=== PATIENT | male | born 1965 | race Caucasian/White ===

== ENCOUNTER 2023-11-21 12:28 | Emergency (ER) | payer BC, OTHER, SELFPAY ==
[2023-11-21 12:41] VITALS: BP 149/84; PULSE 93; RESP 18; TEMP 36.7; O2SAT 100
--- NOTE | 2023-11-21 12:57 | ED.GENADULT ---
HPI - General Adult General Chief complaint: Upper Respiratory Infection Stated complaint: Sinus Congestion/Cough Source: patient Mode of arrival: ambulatory Limitations: no limitations History of Present Illness HPI narrative: Patient presents for evaluation of sinus symptoms for last 5 days. Symptoms include sinus congestion, thick yellow drainage from the nares, and upper dental pain. He also reports an occasional cough. No fever, chills, nausea, vomiting, shortness of breath. No recent sick contacts to his knowledge. He tried dayquil for his symptoms. Related Data Home Medications Medication Instructions Recorded Confirmed atorvastatin 20 mg tablet 20 mg PO DAILY 04/20/23 11/21/23 dapagliflozin propanediol 10 mg 10 mg PO DAILY 04/20/23 11/21/23 tablet (Farxiga) losartan 100 mg tablet 100 mg PO DAILY 04/20/23 11/21/23 Allergies Allergy/AdvReac Type Severity Reaction Status Date / Time No Known Allergies Allergy Verified 06/27/23 13:11 Review of Systems Review of Systems: CONSTITUTIONAL: Denies fever, chills, or sweats. EYES: Denies visual changes, redness, or discharge. ENT: Reports sinus congestion, yellow nasal discharge, and upper dental pain CARDIOVASCULAR: Denies chest pain, palpitations, or edema. RESPIRATORY: Reports cough. Denies dyspnea. GASTROINTESTINAL: Denies abdominal pain, nausea, vomiting, or diarrhea. GENITOURINARY: Denies dysuria or hematuria. SKIN: Denies rash or itching. MUSCULOSKELETAL: Denies back pain, joint pain, or myalgia. NEUROLOGIC: Denies headache, numbness, dizziness, or weakness. PSYCHIATRIC: Denies anxiety or depression. [facility] Past Medical History Medical History Diabetes Hyperlipidemia Hypertension Surgical History Surgical History No pertinent past surgical history Family History Family History Father Diabetes mellitus Hypertension Grandparent Diabetes mellitus Social History Social History Smoking status: Never smoker Alcohol intake: current Alcohol use details: socially Substance use: never Substance use type: does not use Lack of Transportation: No Lack of Food: Never True Current Housing: I Have Housing Concerned About Future Housing: No Difficulty Paying Gas/Electric Bills: No Difficulty Paying for Meds: No Currently Unemployed: No Education: Trade/Vocational Certificate Difficulty w/ Childcare or Family Care: No Exam Narrative: GENERAL: Well-appearing, well-nourished, and in no acute distress. HEAD: Normocephalic, atraumatic. EYES: PERRLA and EOMI. ENT: Nares clear, no rhinorrhea or epistaxis. Mucous membranes moist. Oropharynx without tonsillar hypertrophy exudate or other lesions. There is frontal and bilateral maxillary sinus tenderness. There is thick yellow discharge in the nares. Bilateral TMs pearly mcdonnell nonbulging NECK: Supple. No adenopathy or masses. No carotid bruits or JVD CHEST: Clear to auscultation. No respiratory distress. No wheezes rales or rhonchi HEART: Regular rate and rhythm. No murmur heard. Normal peripheral pulses. ABDOMEN: Soft, nontender, nondistended, normal active bowel sounds. EXTREMITIES: Normal range of motion. No edema. SKIN: Warm, dry, no rash. NEURO: No focal deficits. Alert and oriented x3. PSYCH: Normal mood and affect. Course Course Emergency Course: This is a 58-year-old male who presented for evaluation of sinus symptoms. He meets criteria for ABRS based upon quality of nasal discharge. Will dc with augmentin. Increase hydration. OTC agents for symptom management. Follow up with primary provider. Go to the ER for worsening symptoms. Pt in agreement with plan of care. Level of Care: Express Care Visit Vital Signs
== END 2023-11-21 13:00 | disposition home or self-care (01) ==
PROVIDERS: Emergency Provider Nurse Practitioner; PCP Family Medicine
DX: J01.90 Acute sinusitis, unspecified (principal); E11.9 Type 2 diabetes mellitus without complications; E78.5 Hyperlipidemia, unspecified; I10 Essential (primary) hypertension; Z79.899 Other long term (current) drug therapy
CPT/HCPCS: 99213; G0463

== ENCOUNTER 2024-07-13 07:54 | Outpatient (CLI) | payer OTHER, SELFPAY ==
[2024-07-13 08:48] LABS: Creatinine Urine 75.2 mg/dL
[2024-07-13 08:53] LABS: Microalbumin Urine Random 33.1 mg/L (0-16.7)
[2024-07-13 08:57] LABS: Hemoglobin A1C 8.5 % (<5.7)
[2024-07-13 09:02] LABS: Prostate Specific Antigen 1.2 ng/mL (< OR = 4.0)
[2024-07-19 12:14] LABS: Testosterone Free 96.7 pg/mL (35.0-155.0); Testosterone Total 527 ng/dL (250-1100)
== END 2024-07-13 07:55 | disposition home or self-care (01) ==
PROVIDERS: PCP Family Medicine; Visit Provider Family Medicine
DX: R79.89 Other specified abnormal findings of blood chemistry (principal); E11.9 Type 2 diabetes mellitus without complications; G47.33 Obstructive sleep apnea (adult) (pediatric)
CPT/HCPCS: 36415; 82043; 83036; 84153; 84402; 84403; G0103

== ENCOUNTER 2025-06-20 09:50 | Emergency (ER) | payer OTHER, SELFPAY ==
[2025-06-20 09:53] VITALS: BP 182/93; PULSE 83; RESP 16; TEMP 36.5; O2SAT 100
[2025-06-20] MEDS: TETANUS,DIPHTHERIA,AC PERTUSSIS ADULT (0.5 ML) BOOSTRIX IM (10:27)
--- OUTSIDE RECORDS SUMMARY | 2025-06-20 10:28 | XMS_ITS | Encounter Summary ---
Author Organization [facility] Address [address] [place] [address] Phone Care Team Providers Care Manager Exchange Name Role Phone Sudhakar Howard MD Primary Care Provider [phone] Terrence Benoit MD Primary Care Provider [phone] Encounter Details Date Type Department Care Team (Late st Contact Info) Description 12/23/2017 Orders Only [facility] ProviderChaz MD [address] [place] [id number] Social History Tobacco Use Types Packs/Day Years Used Date Smoking Tobacco: Never Alcohol Use Standard Drinks/Week Comments Yes 0 (1 standard drink = 0.6 oz pur e alcohol) Sex and Gender Information Value Date Recorded Sex Assigned at Not on file 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 08/29/2020 08/31/2020 12/27/2020 3:05 AM C DT documented as of this encounter Care Teams Manager Exchange Relationship Specialty Start Date End Date Sudhakar Howard MD PCP - General 01/06/17 05/02/22 Terrence Benoit MD PCP - General Family Medicine 05/03/22 documented as of this encounter
--- OUTSIDE RECORDS SUMMARY | 2025-06-20 10:28 | XMS_ITS | Clinical Summary ---
Author Organization [facility] Address [address] [place] [id number] Care Team Providers Care Oral Surgery Physician Name Role Phone Terrence Benoit MD Primary Care Provider [phone] Allergies No known active allergies Medications tadalafil (CIALIS) 20 mg tablet take 1 tablet by oral route once a day prn Ed 6 11 017 Active metFORMIN XR (GLUCOPHAGE XR) 500 mg 24 hr tablet Take 2 tablets (1,000 mg total) by mouth 2 (two) times a day 360 tablet 3 022 Active insulin degludec (TRESIBA) 200 unit/mL (3 mL) pen for injection Inject 0.2 mL (40 Units total) under the skin daily before dinner 18 mL 1 022 Active Additional Information Patient taking differently: 50 Unitssubcutaneous Daily before dinner, Reported on 08/04/2022 sertraline (ZOLOFT) 100 mg tablet Take 1 tablet (100 mg total) by mouth daily 90 tablet 1 023 Active SITagliptin phosphate (JANUVIA) 100 mg tabletIndications :type 2 diabetes mellitus Take 1 tablet (100 mg total) by mouth daily 90 tablet 023 Active blood-glucose sensor (Dexcom G6 Sensor) device USE TO MONITOR BLOOD GLUCOSE LEVELS, CHANGE SENSOR EVERY 10 DAYS 9 each 3 023 Active blood-glucose meter,continuous (Dexcom G6 Splitter Machine) misc Use to monitor blood glucose levels DX E11.69, E78.5 1 each 023 Active blood-glucose transmitter (Dexcom G6 Transmitter) device USE TO MONITOR BLOOD GLUCOSE LEVELS, CHANGE TRANSMITTER EVERY 90 DAYS 1 each 3 023 Active amLODIPine (NORVASC) 5 mg tablet Take 1 tablet (5 mg total) by mouth daily 90 tablet 023 Active atorvastatin (LIPITOR) 20 mg tablet TAKE 1 TABLET DAILY 90 tablet 3 024 Active losartan-hydrochl orothiazide (HYZAAR) 100-25 mg per tabletIndications :Essential hypertension TAKE 1 TABLET DAILY 90 tablet 3 024 Active dapagliflozin propanediol (Farxiga) 10 mg tabletIndications :Type 2 diabetes mellitus with hyperlipidemia (HCC) TAKE 1 TABLET DAILY 90 tablet 3 024 Active Active Problems Problem Noted Date Diagnosed Date Class 2 obesity with body ma ss index (BMI) of 35.0 to 35.9 in adult 11/08/2022 Assessment & Plan (11/08/2022 7:30 AM ASSISTANT PASTRY CHEF): Wt Readings from Last 3 Encounters: 11/08/22 110.9 kg (244 lb 8 oz) 08/04/22 108.5 kg (239 lb 3.2 oz) 05/04/22 104.6 kg (230 lb 9.6 oz) BMI Readings from Last 3 Encounters: 11/08/22 35.08 kg/m 08/04/22 34.32 kg/m 05/04/22 33.09 kg/m Not at goal of bmi <30 Continue diet and exercise BMI Follow-up includes: nutrition counseling and exercise counseling. Morbid (severe) obesity due to excess calories 0 11/08/2022 Assessment & Plan (11/08/2022 7:43 AM ASSISTANT PASTRY CHEF): BMI Follow-up includes: nutrition counseling, exercise counseling and education provided. Recurrent major depression 11/08/2022 Assessment & Plan (11/08/2022 7:43 AM ASSISTANT PASTRY CHEF): Stable - cotninue sertraline 100 mg every day Patient reiterated no suicidal thoughts at this time; take medication as directed; contact 911 and go to the ER if becomes suicidal; discussed side effects of medication with patient; encouraged healthy diet and exericise; encouraged patient to see a counselor Physical exam, annual 11/08/2022 Assessment & Plan (11/08/2022 7:49 AM ASSISTANT PASTRY CHEF): Discussed lifestyle modifications, diet and exercise. Routine blood work ordered/reviewed today. Yearly vision and dental examinations. Mixed hyperlipidemia 08/04/2022 Assessment & Plan (11/08/2022 7:33 AM ASSISTANT PASTRY CHEF): Lab Results Component Value Date CHOL 184 08/03/2022 CHOL 178 11/20/2020 CHOL 202 (H) 05/26/2020 Lab Results Component Value Date HDL 45 08/03/2022 HDL 44 11/20/2020 HDL 46 05/26/2020 Lab Results Component Value Date LDLCALC 59 (L) 05/09/2018 LDLCALC 49 (L) 12/23/2017 LDLCALC 41 (L) 06/24/2017 LDL 91 08/03/2022 LDL 88 11/20/2020 LDL 113 (H) 05/26/2020 LDLDIRECT 83 05/09/2018 LDLDIRECT 74 12/23/2017 LDLDIRECT 89 06/24/2017 SCRLDL 60 07/11/2019 Lab Results Component Value Date TRIG 359 (H) 08/03/2022 TRIG 348 (H) 11/20/2020 TRIG 319 (H) 05/26/2020 No results found for: POCCHDLR No results found for: POCNONHDL No results found for: POCCHLPL Elevated triglycerides but otherwise ldl at goal of less < 100 Continue lipitor 20 mg every day The 10-year ASCVD risk score (Victor Hugo GROSS, et al., 2019) is: 19.6% Values used to calculate the score: Age: 56 years Sex: Male Is Non- : No Diabetic: Yes Tobacco smoker: No Systolic Blood Pressure: 154 mmHg Is BP treated: Yes HDL Cholesterol: 45 mg/dL Total Cholesterol: 184 mg/dL Assessment & Plan (08/04/2022 8:01 AM CDT): Lab Results Component Value Date CHOL 184 08/03/2022 CHOL 178 11/20/2020 CHOL 202 (H) 05/26/2020 Lab Results Component Value Date HDL 45 08/03/2022 HDL 44 11/20/2020 HDL 46 05/26/2020 Lab Results Component Value Date LDLCALC 59 (L) 05/09/2018 LDLCALC 49 (L) 12/23/2017 LDLCALC 41 (L) 06/24/2017 LDL 91 08/03/2022 LDL 88 11/20/2020 LDL 113 (H) 05/26/2020 LDLDIRECT 83 05/09/2018 LDLDIRECT 74 12/23/2017 LDLDIRECT 89 06/24/2017 SCRLDL 60 07/11/2019 Lab Results Component Value Date TRIG 359 (H) 08/03/2022 TRIG 348 (H) 11/20/2020 TRIG 319 (H) 05/26/2020 No results found for: POCCHDLR No results found for: POCNONHDL No results found for: POCCHLPL Trigs still significantly elevated, otherwise LDL and HDL are at goal The 10-year ASCVD risk score (Victor Hugo GROSS, et al., 2019) is: 14.9% Values used to calculate the score: Age: 56 years Sex: Male Is Non- : No Diabetic: Yes Tobacco smoker: No Systolic Blood Pressure: 130 mmHg Is BP treated: Yes HDL Cholesterol: 45 mg/dL Total Cholesterol: 184 mg/dL Continue statin Screen for colon cancer 11/26/2020 Overview (11/26/2020): Added automatically from request for surgery [id number] History of colon polyps 11/26/2020 Overview (11/26/2020): Added automatically from request for surgery [id number] Tubular adenoma 11/26/2020 Overview (11/26/2020): Added automatically from request for surgery [id number] Essential hypertension 01/09/2018 Assessment & Plan (11/08/2022 7:31 AM ASSISTANT PASTRY CHEF): BP Readings from Last 3 Encounters: 11/08/22 154/94 08/04/22 130/80 05/04/22 153/90 Vitals BP 154/94 (BP Location: Right arm, Patient Position: Sitting) Pulse 78 Temp 36.8 C (98.2 F) (Oral) Resp 16 Ht 177.8 cm (5' 10) Wt 110.9 kg (244 lb 8 oz) BMI 35.08 kg/m Lab Results Component Value Date POTASSIUM 4.2 08/03/2022 Not at goal - continue losartan 100-25 hctz. Will start norvasc 5 mg every day Assessment & Plan (08/04/2022 7:43 AM CDT): BP Readings from Last 3 Encounters: 08/04/22 130/80 05/04/22 153/90 02/23/21 128/81 bp at goal today. Continue current regimen Assessment & Plan (05/04/2022 8:26 AM CDT): bp not at goal right now, generally at goal on current regimen - will continue withotu changes and have him follow up in about 3 months Assessment & Plan (12/06/2019 4:17 PM ASSISTANT PASTRY CHEF): Pt was advised of continuing heart healthy DASH diet, current antihypertensives, increase exercise as tolerated. Risk of HTN were reviewed. Type 2 diabetes mellitus with hyperlipidemia 12/2017 Assessment & Plan (11/08/2022 7:48 AM ASSISTANT PASTRY CHEF): Lab Results Component Value Date HGBA1C 9.4 08/04/2022 HGBA1C 10.2 05/04/2022 HGBA1C 7.6 (H) 05/26/2020 Lab Results Component Value Date MICROALBUR 1.0 08/03/2022 LDLCALC 59 (L) 05/09/2018 CREATININE 0.97 08/03/2022 notat goal of a1c <7 Did not take the rybelsus - due to side effects. States that he was sick to his stomach. \will stasrt januvia - pt cannot tolerate glp1 type medications, already on an sglt2 and long acting insulin Continue metofmrin 1000 mg bid Continue farxiga 10 mg every day Start januvia 100 mg every day, rtc in 3 months or sooner if side effects Assessment & Plan (08/04/2022 7:54 AM CDT): Lab Results Component Value Date HGBA1C 10.2 05/04/2022 HGBA1C 7.6 (H) 05/26/2020 HGBA1C 7.3 (H) 07/29/2019 Lab Results Component Value Date MICROALBUR 0.5 11/20/2020 LDLCALC 59 (L) 05/09/2018 CREATININE 0.97 08/03/2022 Has his dexcom in place - states that he doesn't check it often enough as he shuold States that sugars have been running 150 to about 200 Or so May need to further increase his medication to achieve better glucose control Not at goal today and miniumal improvement in a1c - will start rybelsus. Start 3mg for 30 days then increase to 7 mg Assessment & Plan (05/04/2022 8:23 AM CDT): Not at goal at this time, new a1c is 10 due to patient being without medication for some time. Will refill now, have him come back in 3 months for repeat a1c and see how things are doing. Assessment & Plan (12/06/2019 4:21 PM ASSISTANT PASTRY CHEF): Stable w/o notable elevations given sx. Hemoglobin A1c at 7.3%. Cnt. Monitoring as advised by reason orders, Cnt. Prior prescribed diabetic regimen, consistent carb diet and follow-up in office with repeat labs scheduled. Gastroesophageal reflux disease 02/22/2014 Overview (01/12/2017): ESOPHAGEAL REFLUX Irritable bowel syndrome 02/22/2014 Overview (01/13/2017): IRRITABLE BOWEL SYNDROME Decreased testosterone level 08/05/2006 Overview (01/12/2017): Low testosterone Resolved Problems Problem Noted Date Diagnosed Date Resolved Date Acute bronchitis 12/06/2019 12/06/2019 Assessment & Plan (12/06/2019 4:22 PM ASSISTANT PASTRY CHEF): Secondary bronchitis from suspected pneumonia. Recommending Ceftin b.i.d. for 10 days, Flonase, Mucinex, increase fluids and use of albuterol for bronchospasms, cough, wheezing in attempt to avoid use of corticosteroids. Pt was advised S/Es of medications, indication to F/U in clinic within the next week with persistent or worsening in sx. Type 2 diabetes mellitus 02/22/201412/2017 Overview (01/11/2017): DMII WO CMP NT ST UNCNTR Benign hypertension 02/22/2014 01/10/20 18 Overview (01/12/2017): BENIGN HYPERTENSION Diabetes mellitus 08/05/2006 01/09/2018 Overview (01/12/2017): Diabetes mellitus Encounters Date Type Department Care Team Description 06/05/2025 11:22 AM CDT - 06/05/2025 11:59 PM CDT Hospital Encounter [facility] [address] [place] [address] Encounter for disability determination Discharge Disposition: Discharge to home or self care from Last 3 Months Immunizations Immunization Administration Dates Next Due Influenza, Quadrivalent, Spl it, Preservative Free, Intramuscular 07/22/2022,11/25/2020,08/08/2019,06/28 Influenza, Trivalent, IM (MDV) 07/09/2012,2010 Influenza, Unspecified 12/07/2021(Deferr ed: Patient Refused),08/20/2018 Pfizer SARS-CoV-2 Monovalent Vaccination (12+ Yrs) PURPLE 01/17/2021,12/22/2020 Pneumococcal Conjugate PCV 13 06/28/2017 Pneumococcal Polysaccharide PPV23 09/07/2011 Tdap 11/27/2014 Surgical History Surgery Date Site/Laterality Comments APPENDECTOMY Appendectomy OTHER SURGICAL HISTORY sleep apnea: cpap ELBOW SURGERY COLONOSCOPY 08/14/2015 Medical History Medical History Date Comments Hx Other Medical 2006 Diabetes mellit us, type 2 Hx Other Medical 2006 low testosteron e Sleep apnea 2006 sleep apnea Hx Other Medical 01/18/2013 Rt elbow surger y Hyperlipidemia Hyperlipidemia; Comments: JDR 03/24/2016 - Hypertension Hypertension DM type 2 with diabetic dysl ipidemia (HCC) Family History Medical History Relation Name Comments Diabetes Brother 1 Diabetes mellit us; Heart disease Brother 2 Heart disease; Hypertension Brother 3 Hypertension; Coronary artery disease Father Teodoro nary artery disease; Diabetes Father Diabetes mellit us; Heart disease Father Heart disease; Hypertension Father Hypertension; Diabetes Mother Diabetes mellit us; Other Mother Alive and well; Relation Name Status Comments Brother 1 Brother 2 Brother 3 Father Mother Alive Social History Tobacco Use Types Packs/Day Years Used Date Smoking Tobacco: Never Smokeless Tobacco: Never Tobacco Cessation:Counseling Given: Not Answered Alcohol Use Standard Drinks/Week Comments Yes 0 (1 standard drink = 0.6 oz pur e alcohol) PHQ-2 Answer Date Recorded PHQ-2 Total Score (If total score is 3 or more points, staff should administer the PHQ-9) 0 11/08/2022 Sex and Gender Information Value Date Recorded Sex Assigned at Not on file Legal Sex Male 9:58 AM ASSISTANT PASTRY CHEF Gender Identity Not on file Sexual Orientation Not on file Obstetrics History Last Filed Vital Signs Vital Sign Reading Time Taken Comments Blood Pressure 154/94 11/08/2022 7:14 AM ASSISTANT PASTRY CHEF Pulse 78 11/08/2022 7:14 AM ASSISTANT PASTRY CHEF Temperature 36.8 C (98.2 F) 11/08/2022 7:14 AM ASSISTANT PASTRY CHEF Respiratory Rate 16 11/08/2022 7:14 AM ASSISTANT PASTRY CHEF Oxygen Saturation 97% 08/04/2022 7:34 AM CDT Inhaled Oxygen Concentration - - Weight 110.9 kg (244 lb 8 oz) 11/08/2022 7:14 AM ASSISTANT PASTRY CHEF Height 177.8 cm (5' 10) 11/08/2022 7:14 AM ASSISTANT PASTRY CHEF Body Mass Index 35.08 11/08/2022 7:14 AM ASSISTANT PASTRY CHEF Plan of Treatment Health Maintenance Due Date Last Done Comments Hepatitis B Screening 1982 Zoster Vaccine (1 of 2) 2014 Dilated Eye Exam 06/20/2017 06/20/2016 Foot Exam 11/25/2021 11/25/2020, 05/10, 12/06/2019, Additional history exists Pneumococcal vaccine <65 (3 of 3 - PCV20 or PCV21) 06/28/2022 06/28/2017, 09/07/2011 Hemoglobin A1C 05/08/2023 11/08/2022, 07/10, 05/04/2022, Additional history exists Albumin Creatinine Ratio, Urine 08/03/2023 08/03/2022, 11/20/2020, 07/29/2019 Lipid Panel 08/03/2023 08/03/2022, 11/09, 05/26/2020, Additional history exists Prostate Cancer Screening-PSA 08/03/2023, 11/20/2020, 07/29/2019, Additional history exists eGFR 08/03/2023 08/03/2022, 11/09, 05/26/2020, Additional history exists Depression Screening 11/08/2023 11/08/2022, 08/04/2022, 02/09/2021, Additional history exists Regular Well Visit/Exam 18-64 11/08/2023, 11/25/2020, 08/08/2019, Additional history exists DTaP/Tdap/Td Vaccine (2 - Td or Tdap) 11/27/2024 11/27/2014 Covid-19 Vaccine (2024-11 6 season) 2025 07/22/2022, 09/01/2021, 01/17/2021, Additional history exists Influenza Vaccine (#1) 2025 , 11/25/2020, 08/08/2019, Additional history exists Colon Cancer Screening-Colonoscopy 02/23/2026 02/23/2021, 08/14/2015, 08/14/2015, Additional history exists Hepatitis C Screening Completed 12/23/2017 Colon Cancer Screening-CT Colonography Discontinued 02/23/2021, 08/14/2015, 08/14/2015, Additional history exists Colon Cancer Screening-DNA Stool Discontinued 02/23/2021, 08/14/2015, 08/14/2015, Additional history exists Colon Cancer Screening-FIT Discontinued 02/23, 08/14/2015, 08/14/2015, Additional history exists Colon Cancer Screening-Sigmoidoscopy Discontinued 02/23/2021, 08/14/2015, 08/14/2015, Additional history exists Procedures Procedure Name Priority Date/Time Associated Diagnosis Comments XR SPINE LUMBAR 2 OR 3 VIEWS Schedule Routine, Read Routine (OP Routine) 06/05/2025 11:42 AM CDT Encounter for disability determination POCT HEMOGLOBIN A1C Routine 11/08/2022 7 :35 AM ASSISTANT PASTRY CHEF Type 2 diabetes mellitus with hyperlipidemia (HCC) COMPREHENSIVE METABOLIC PANEL Routine 08/03/2022 6:15 AM CDT Type 2 diabetes mellitus with hyperlipidemia (HCC) LIPID PANEL Routine 08/03/2022 6:15 AM CDT Type 2 diabetes mellitus with hyperlipidemia (HCC) ALBUMIN CREATININE RATIO, URINE Routine 08/03/2022 6:15 AM CDT Type 2 diabetes mellitus with hyperlipidemia (HCC) PSA SCREEN Routine 08/03/2022 6:15 AM CDT Preventative health care COLONOSCOPY 02/23/2021 9:37 AM CDT HEPATITIS C AB REFLEX RNA QUANT PCR Routine 12/23/2017 7:53 AM CDT DIABETES FOOT EXAM Routine 09/30/2016 DIABETES EYE EXAM Routine 06/20/2016 from Last 3 Months or Most Recently Relevant to Health Maintenance Results * XR Spine Lumbar 2 or 3 Views (06/05/2025 11:42 AM CDT) Anatomical Region Laterality Modality Spine N/A Computed Radiogr aphy 06/16/2025 11:3 1 PM CDT Narrative 06/16/2025 11:34 PM CDT EXAM DESCRIPTION: XR SPINE LUMBAR 2 OR 3 VIEWS REASON FOR STUDY: disability determinations Chronic lower back pain that is sharp when moving Received 10-15 shots of cortisone in back per pt TECHNIQUE: 2 radiographic view(s) of the lumbar spine. COMPARISON: None FINDINGS: Dextroscoliosis of the lumbar spine. There is moderate to severe degenerative changes along the scoliotic concavity, worse at L4-L5. There is severe facet arthropathy at L4-L5 and L5-S1. Mild retrolisthesis of L2 on L3 and L3 on L4. The vertebral body heights are normal without compression fracture. Age-indeterminate T12 vertebral body compression fracture. Cgox-pi-bxwpydql degenerative changes of the lower thoracic spine. Hvqo-qu-yzcqvyqw multilevel degenerative intervertebral disc height loss of the lumbar spine, worse at L3-L4, L4-L5 and L5-S1. IMPRESSION: 1. Age-indeterminate T12 vertebral body compression fracture. Follow-up MRI may prove helpful to determine chronicity if clinically indicated. 2. Moderate to severe degenerative changes of the lumbar spine as described above. Follow-up MRI may prove helpful for further evaluation if clinically desired. THIS IS AN ELECTRONICALLY VERIFIED FINAL REPORT 06/16/2025 11:34 PM - Electronically signed by Bk Posey M.D. BB: RENAE Report ID: [id number] Reading Location: [id number] Procedure Note Bk Posey MD PhD - 06/16/2025 EXAM DESCRIPTION: XR SPINE LUMBAR 2 OR 3 VIEWS REASON FOR STUDY: disability determinations Chronic lower back pain that is sharp when moving Received 10-15 shotsof cortisone in back per pt TECHNIQUE: 2 radiographic view(s) of the lumbar spine. COMPARISON: None FINDINGS: Dextroscoliosis of the lumbar spine. There is moderate to severedegenerative changes along the scoliotic concavity, worse at L4-L5. There is severefacet arthropathy at L4-L5 and L5-S1. Mild retrolisthesis of L2 on L3 and L3 onL4. The vertebral body heights are normal without compression fracture. Age-indeterminate T12 vertebral body compression fracture.Zdcu-hw-yzbmuctx degenerative changes of the lower thoracic spine. Nrvd-no-gizylkiecomxbrlyjk degenerative intervertebral disc height loss of the lumbar spine, worse at L3-L4, L4-L5 and L5-S1. IMPRESSION: 1. Age-indeterminate T12 vertebral body compression fracture. Follow-upMRI may prove helpful to determine chronicity if clinically indicated. 2. Moderate to severe degenerative changes of the lumbar spine asdescribed above. Follow-up MRI may prove helpful for further evaluation ifclinically desired. THIS IS AN ELECTRONICALLY VERIFIED FINAL REPORT 06/16/2025 11:34 PM - Electronically signed by Bk Posey M.D. BB: RENAE Report ID: [id number] Reading Location: [id number] Pedro Luis Villa MD IMG XR PROCEDURES Final Result * (ABNORMAL) POCT hemoglobin A1c (11/08/2022 7:35 AM ASSISTANT PASTRY CHEF) Hemoglobin A1C, POC 9.9 % 00092/FINE NEEDLE ASPIRATE 11/08/2022 7:35 AM ASSISTANT PASTRY CHEF us Terrence Benoit MD POINT OF CARE TEST ORDERABLES Fi nal Result * PSA screen (08/03/2022 6:15 AM CDT) PSA 0.41 < OR = 4.00 ng/mL [facility] Comment: The total PSA value from this assay system is standardized against the WHO standard. The test result will be approximately 20% lower when compared to the equimolar-standardized total PSA (Melissa Sarita). Comparison of serial PSA results should be interpreted with this fact in mind. This test was performed using the Siemens chemiluminescent method. Values obtained from different assay methods cannot be used interchangeably. PSA levels, regardless of value, should not be interpreted as absolute evidence of the presence or absence of disease. Blood specimen (specimen) 08/03/2022 6:15 AM CDT 08/03/2022 6:15 AM CDT Narrative [facility] - 08/04/2022 11:05 AM CDT FASTING:YES FASTING: YES us Terrence Benoit MD LAB BLOOD ORDERABLES Final Resul t [facility] [address] [facility] [address] * Albumin Creatinine Ratio, Urine (08/03/2022 6:15 AM CDT) Creatinine, ur 91 20 - 320 mg/dL [facility] Microalbumin, ur 1.0 See Note: mg/dL [facility] Comment: Reference Range: Reference Range Not established Microalbumin/creat ratio 11 <30 mcg/mg creat [facility] Comment: The ADA defines abnormalities in albumin excretion as follows: Albuminuria Category Result (mcg/mg creatinine) Normal to Mildly increased <30 Moderately increased 30-299 Severely increased > OR = 300 The ADA recommends that at least two of three specimens collected within a 3-6 month period be abnormal before considering a patient to be within a diagnostic category. Urine 08/03/2022 6:15 AM CDT 08/03/2022 6:15 AM CDT Narrative [facility] - 08/04/2022 11:05 AM CDT FASTING:YES FASTING: YES us Terrence Benoit MD LAB URINE ORDERABLES Final Resul t [facility] [address] [facility] [place] [phone] * (ABNORMAL) Lipid panel (08/03/2022 6:15 AM CDT) Cholesterol 184 <200 mg/dL [facility] HDL 45 > OR = 40 mg/dL [facility] Triglycerides 359(H) <150 mg/dL [facility] Comment: If a non-fasting specimen was collected, consider repeat triglyceride testing on a fasting specimen if clinically indicated. Sarmad et al. J. of Clin. Lipidol. 2015;9:129-169. LDL 91 mg/dL (calc) [facility] Comment: Reference range: <100 Desirable range <100 mg/dL for primary prevention; <70 mg/dL for patients with CHD or diabetic patients with > or = 2 CHD risk factors. LDL-C is now calculated using the Dave-Hao calculation, which is a validated novel method providing better accuracy than the Friedewald equation in the estimation of LDL-C. Dave RAZA et al. МАРИНА. 2013;310(19): 3846-0910 (http://education.[employer].Teach.com/faq/PLJ677) Chol/HDL ratio 4.1 <5.0 (calc) [facility] Non-HDL, (LDL+VLDL) 139(H) <130 mg/dL (calc) [facility] Comment: For patients with diabetes plus 1 major ASCVD risk factor, treating to a non-HDL-C goal of <100 mg/dL (LDL-C of <70 mg/dL) is considered a therapeutic option. Blood specimen (specimen) 08/03/2022 6:15 AM CDT 08/03/2022 6:15 AM CDT Narrative [facility] - 08/04/2022 11:05 AM CDT FASTING:YES FASTING: YES us Terrence Benoit MD LAB BLOOD ORDERABLES Final Resul t [facility] [address] [place] [phone] * (ABNORMAL) Comprehensive metabolic panel (08/03/2022 6:15 AM CDT) Glucose 197(H) 65 - 99 mg/dL [facility] Comment: Fasting reference interval For someone without known diabetes, a glucose value >125 mg/dL indicates that they may have diabetes and this should be confirmed with a follow-up test. BUN 11 7 - 25 mg/dL [facility] Creatinine 0.97 0.70 - 1.30 mg/dL [facility] eGFR 91 > OR = 60 mL/min/1. 73m2 [facility] Comment: The eGFR is based on the CKD-EPI 2020 equation. To calculate the new eGFR from a previous Creatinine or Cystatin C result, go to https://www.kidney.org/professionals/ kdoqi/gfr%5Fcalculator BUN/creat ratio NOT APPLICABLE 6 - 22 (calc) [facility] Sodium 139 135 - 146 mmol/L [facility] Potassium, pl 4.2 3.5 - 5.3 mmol/L [facility] Chloride 97(L) 98 - 110 mmol/L [facility] CO2 29 20 - 32 mmol/L [facility] Calcium 9.7 8.6 - 10.3 mg/dL [facility] Protein, sr 7.1 6.1 - 8.1 g/dL [facility] Albumin 4.6 3.6 - 5.1 g/dL [facility] GLOBULIN 2.5 1.9 - 3.7 g/dL (calc) [facility] Alb/glob ratio 1.8 1.0 - 2.5 (calc) [facility] Bilirubin, total 0.6 0.2 - 1.2 mg/dL [facility] Alk phos 126 35 - 144 U/L [facility] AST 42(H) 10 - 35 U/L [facility] ALT (SGPT) 48(H) 9 - 46 U/L [facility] Blood specimen (specimen) 08/03/2022 6:15 AM CDT 08/03/2022 6:15 AM CDT Narrative [facility] - 08/04/2022 11:05 AM CDT FASTING:YES FASTING: YES us Terrence Benoit MD LAB BLOOD ORDERABLES Final Resul t [facility] [address] [place] [phone] * COLONOSCOPY (02/23/2021 9:37 AM CDT) Anatomical Region Laterality Modality Other Narrative Procedure Note Kelly Chilel MD - 02/23/2021 9:37 AM CDT [facility] Patient Name: Itz Escobedo Procedure Date: 02/23/2021 9:37 AM Date of : 1965 Admit Type: Outpatient Age: 55 Gender: Male Attending MD: Kelly Chilel M.D. Room: [facility] ENDOSCOPY ROOM 1 Note Status: Finalized Patient Profile: This is a 55 year old male. No family history ofcolon cancer. History of adenoma polyp in 2014 Procedure: Colonoscopy Indications: Surveillance: Personal history of adenomatouspolyps on last colonoscopy 5 years ago, Last colonoscopy: August 2015 Referring MD: Sudhakar Howard M.D. Providers: Kelly Chilel M.D. Impression: - The entire examined colon is normal overall. - Diverticulosis in the sigmoid colon. - Internal hemorrhoids. - No specimens collected. Recommendation: - Repeat colonoscopy in 5 years for screeningpurposes. - Continue present medications. Medicines: Monitored Anesthesia Care Complications: No immediate complications. Estimated Blood Loss: Estimated blood loss: none. Procedure: Pre-Anesthesia Assessment: - Prior to the procedure, a History and Physicalwas performed, and patient medications and allergieswere reviewed. The patient's tolerance of previous anesthesia was also reviewed. The risks andbenefits of the procedure and the sedation options and risks were discussed with the patient. All questions were answered, and informed consent was obtained. Prior Anticoagulants: The patient has taken no previous anticoagulant or antiplatelet agents. ASA Grade Assessment: II - A patient with mild systemicdisease. After reviewing the risks and benefits, the patient was deemed in satisfactory condition to undergo the procedure. The benefits, risks and alternatives of theprocedure and sedation were discussed and informed consentwas obtained. All questions were answered. Please referto the signed informed consent document in the medical record. The bowel preparation used was Miralax via split dose instruction. The bowel preparation usedwas bisacodyl tablets via split dose instruction. Bowel prep was administered using a split dose. The scope was passed under direct vision. The Pediatric Colonoscope PCF-H190L [id number] was introducedthrough the anus and advanced to the the cecum, identifiedby appendiceal orifice and ileocecal valve. Thequality of the bowel preparation was good. Findings: The perianal and digital rectal examinations were normal. The cecum appeared normal. The colon (entire examined portion) appeared normal overall. Nopolyps and no mass lesions noted. One arteriovenous malformations noted inthe proximal descending colon with no stigmata of bleeding. This is abenign lesion and no intervention is needed A few small-mouthed diverticula were found in the sigmoid colon. Internal hemorrhoids were found during retroflexion. The hemorrhoids were small. Electronically signed by Kelly Chilel M.D. Kelly Chilel M.D. 02/23/2021 11:12:34 AM Number of Addenda: 0 Note Initiated On: 02/23/2021 9:37 AM Procedure Code(s): --- Professional --- 39281, Colonoscopy, flexible; diagnostic, including collection of specimen(s) by brushing or washing, when performed (separateprocedure) Diagnosis Code(s): --- Professional --- Z86.010, Personal history of colonic polyps K64.8, Other hemorrhoids K57.30, Diverticulosis of large intestine without perforation orabscess without bleeding CPT copyright 2019 [employer]. All rights reserved. The codes documented in this report are preliminary and upon childcare provider reviewmay be revised to meet current compliance requirements. Recognized by the [employer] for promoting quality in endoscopy Kelly Chilel MD ENDOSCOPY PROCEDURES Final Result * Hepatitis C Antibody Reflex Hepatitis C RNA Quantitative PCR (12/23/2017 7:53 AM CDT) Hep C Ab Negative Negative [place] Blood specimen (specimen) 12/23/2017 7:53 AM CDT 12/23/2017 12:42 PM CDT Narrative [place] - 12/23/2017 1:32 PM CDT Sudhakar Howard MD LAB MICROBIOLOGY - GENERAL [place] [address] [address] Department [place] [address] * DIABETES FOOT EXAM (09/30/2016) Diabetic Foot Exam Unknown Historical Provider HEALTH MAINTENANCE Final Result * DIABETES EYE EXAM (06/20/2016) Diabetic Eye Exam Unknown us Historical Provider MD HEALTH MAINTENANCE Final Result from Last 3 Months or Most Recently Relevant to Health Maintenance [facility] Address: [address] [place] [address] [employer]PO [facility] Address: [address] [facility] [employer] OF DISABILITY Advance Directives For more information, please contact: [phone] * Full Code (Latest Code Status on File) Date Activated Date Inactivated Comments 02/23/2021 9:55 AM 02/23/2021 4:09 PM Care Teams Oral Surgery Physician Relationship Specialty Start Date End Date Terrence Benoit MD PCP - General Family Medicine 05/03/22
--- OUTSIDE RECORDS SUMMARY | 2025-06-20 10:28 | XMS_ITS | Clinical Summary ---
Author Organization [facility] Address [address] [facility] Attn: Epic Prelude ADT DAVE LEBRON [address] Care Team Providers Care Brim Edge Trimmer Name Role Phone Unavailable Primary Care Provider Unavailabl e Encounters Date Type Department Care Team Description 04/01/2025 External Device Data [facility] ABSTRACTION Provider, Abstract from Last 3 Months Social History Tobacco Use Types Packs/Day Years Used Date Smoking Tobacco: Never Assessed Sex and Gender Information Value Date Recorded Sex Assigned at Not on file Legal Sex Male 3:27 PM CDT Gender Identity Not on file Sexual Orientation Not on file Plan of Treatment Health Maintenance Due Date Last Done Comments DTAP/TDAP/TD VACCINES (1 - Tdap) 1983 COLORECTAL SCREENING 2009 Colorectal Cancer Screening 2009 FIT-DNA Q 3 years 2009 FIT/FOBT Q 1 year 2009 Flex Sig/CT Colonography Q 5 years 2009 ZOSTER VACCINE (1 of 2) 2014 INFLUENZA VACCINE (#1) 2025 RSV VACCINE (60+ or ) (1 - 1-dose 75+ series) 2039 HEPATITIS B VACCINES Aged Out No long er eligible based on patient's age to complete this topic Insurance [employer]
--- NOTE | 2025-06-20 10:31 | ED.LOWEXIN ---
HPI - Extremity Injury (Lower) General Chief Complaint: Extremity Injury, Lower Stated Complaint: left leg injury Time Seen by Provider: 06/20/25 10:32 Source: patient Mode of arrival: ambulatory Limitations: no limitations History of Present Illness HPI Narrative: 59 y/o male with DM presented with c/o left branch wound x4 weeks. Says he scraped the leg on the plastic stairs when he slipped getting out of the pool. Since then he has kept the site clean, used neosporin and bandaids. Yesterday he removed the bandaid but it pulled the scab off the leg and now has some drainage to the wounds. Endorses swelling to leg, ccasional sharp pains in the lower leg. Denies n/v/d/f/c. Related Data Home Medications ?Medication ?Instructions ?Recorded ?Confirmed ?Last Taken ?Type dapagliflozin propanediol 10 mg 10 mg PO DAILY 04/20/23 11/21/23 Unknown History tablet (Farxiga) certrazine 06/20/25 Unknown History insulin degludec 200 unit/mL (3 unit subcut 06/20/25 Unknown History mL) subcutaneous pen (Tresiba FlexTouch U-200 insulin) losartan 06/20/25 Unknown History Allergies Allergy/AdvReac Type Severity Reaction Status Date / Time No Known Allergies Allergy Verified 06/20/25 10:11 Review of Systems Review of Systems: CONSTITUTIONAL: Denies body aches, fever, chills, or sweats. EYES: Denies visual changes, redness, or discharge. ENT: Denies rhinorrhea, congestion CARDIOVASCULAR: Denies chest pain, palpitations, or edema. RESPIRATORY: Denies cough or dyspnea. GASTROINTESTINAL: Denies abdominal pain, nausea, vomiting, or diarrhea. SKIN: left branch wound MUSCULOSKELETAL: Denies back pain, joint pain, or myalgia. NEUROLOGIC: Denies headache, numbness, tingling, or weakness. [facility] Past Medical History Medical History Hyperlipidemia Diabetes Hypertension Surgical History Surgical History No pertinent past surgical history Family History Family History Father Diabetes mellitus Hypertension Grandparent Diabetes mellitus Social History Social History Smoking status: Never smoker Alcohol intake: current Alcohol use details: socially Substance use: never Substance use type: does not use Lack of Transportation: No Lack of Food: Never True Current Housing: I Have Housing Concerned About Future Housing: No Difficulty Paying Gas/Electric Bills: No Difficulty Paying for Meds: No Currently Unemployed: No Education: Trade/Vocational Certificate Difficulty w/ Childcare or Family Care: No Comments At time of signature, I have reviewed and agree with nursing past medical, surgical, social and family history unless otherwise noted. Please see nursing chart for further information. There is no relevant family history pertinent to the presenting complaint Exam Narrative: GENERAL: Well-appearing HEAD: Normocephalic, atraumatic. EYES: conjunctivae clear, and EOMI. ENT: Mucous membranes moist. Oropharynx without edema, erythema or lesions. NECK: Supple. No lymphadenopathy CHEST: Clear to auscultation. HEART: Regular rate and rhythm. SKIN: Warm, dry. Left branch with area of localized erythema 23v22hr, center with open wounds 4x1cm and 2x1 cm, draining serous fluid. LLE with 1+ pitting edema. NEURO: Alert and oriented x3. Course Course Emergency Course: Patient is aware of diagnosis, understands and agrees to treatment plan. Anticipatory guidance given. Patient agrees to follow-up as directed and is aware of reasons to seek care at the emergency department. Portions of this record may have been created with voice recognition software Level of Care: Express Care Visit Vital Signs Vital signs: Vital Signs Temperature 97.7 F 06/20/25 09:53 Pulse Rate 83 06/20/25 09:53 Respiratory Rate 16 06/20/25 09:53 Blood Pressure 182/93 H 06/20/25 09:53 Pulse Oximetry 100 06/20/25 09:53 Oxygen Delivery Room Air 06/20/25 09:53 Temperature 97.7 F 06/20/25 09:53 Pulse Rate 83 06/20/25 09:53 Respiratory Rate 16 06/20/25 09:53 Blood Pressure 182/93 H 06/20/25 09:53 Pulse Oximetry 100 06/20/25 09:53 Oxygen Delivery Room Air 06/20/25 09:53 Reviewed MDM - Extremity Injury (Lower) MDM Narrative Medical decision making narrative: Discussed physical exam findings and wound care plan. Wound was cleansed, NATTY and bandage applied. Rx doxy. Advised supportive measures and signs/symptoms to go to the ER. Pt is appropriate for outpt treatment and f/u. Differential Diagnosis Differential diagnosis: Likely other (cellulitis, abrasion, avulsion, abscess) Discharge Plan Discharge Clinical Impression: Non-healing wound of left lower extremity Patient Disposition: Home Condition: Stable Instructions: Antibiotic Form, Wound Infection (ED) Additional Instructions: Keep the area clean and dry - cleanse with warm water and mild soap and allow to fully dry. Apply ointment as directed Take antibiotic as directed Tyelnol as needed for pain Try to elevate the leg to reduce swelling Watch for worsening symptoms including pain, redness, swelling, streaking, pus/drainage, fever. Go to the ER with any of these symptoms or concerns. Follow up with primary care provider in 5 days. Call to schedule an appointment Patient Language: Romanian Prescriptions: New doxycycline hyclate 100 mg tablet 100 mg PO BID 7 Days Qty: 14 0RF No Action insulin degludec [Tresiba FlexTouch U-200] 200 unit/mL (3 mL) insulin pen SUBCUT losartan certrazine (DME) syringe with needle, safety [Easy Touch FlipLock Syringe] 3 mL 22 gauge x 1 syringe See Rx Instructions .Route Qty: 15 3RF Rx Instructions: As directed Farxiga 10 mg tablet 10 mg PO DAILY tadalafil [Cialis] 10 mg tablet 10 mg PO DAILY PRN (Reason: sexual activity) Qty: 20 1RF Rx Instructions: administer approximately 30min before sexual activity; do not use more than 1 dose per 24hrs (DME) syringe with needle 3 mL 23 x 1 syringe See Rx Instructions .Route Qty: 50 1RF Rx Instructions: As directed (DME) Dexcom G6 Sensor Device See Rx Instructions .Route Qty: 3 3RF Rx Instructions: Check glucose continuously As directed (DME) Dexcom G6 Transmitter Device See Rx Instructions .Route Qty: 1 3RF Rx Instructions: As directed (DME) Dexcom G7 Sensor Device See Rx Instructions .Route Qty: 2 5RF Rx Instructions: As directed sertraline 100 mg tablet See Rx Instructions .ROUTE .COMPLEX Qty: 90 1RF Dose Instruction: TAKE 1 TABLET DAILY Rx Instructions: TAKE 1 TABLET DAILY metformin 500 mg tablet See Rx Instructions .ROUTE .COMPLEX Qty: 360 0RF Dose Instruction: TAKE 2 TABLETS ORALLY TWICE A DAY Rx Instructions: TAKE 2 TABLETS ORALLY TWICE A DAY Follow-up/Referrals: Cameron Rodriguez MD [Primary Care Provider, Family Practice] Time of Disposition: 10:42
== END 2025-06-20 10:55 | disposition home or self-care (01) ==
PROVIDERS: Emergency Provider Nurse Practitioner Family; PCP Family Medicine
DX: S81.802A Unspecified open wound, left lower leg, initial encounter (principal); W22.8XXA Striking against or struck by other objects, initial encounter; Z23 Encounter for immunization; I10 Essential (primary) hypertension; E11.9 Type 2 diabetes mellitus without complications; Z79.4 Long term (current) use of insulin; E78.5 Hyperlipidemia, unspecified
CPT/HCPCS: 90471; 90715; 99213; G0463

== ENCOUNTER 2025-09-03 00:52 | Day surgery (SDC) | payer OTHER, SELFPAY ==
[2025-09-01 12:38] VITALS: BMI 32.2
--- OUTSIDE RECORDS SUMMARY | 2025-09-03 00:56 | XMS_ITS | Clinical Summary ---
Author Organization [facility] Address [address] [facility] Attn: Epic Prelude ADT DAVE LEBRON [address] Care Team Providers Care Molding Process Technician Name Role Phone Unavailable Primary Care Provider Unavailabl e Encounters Date Type Department Care Team Description 08/06/2025 External Device Data [facility] ABSTRACTION Provider, Abstract 08/05/2025 External Device Data [facility] ABSTRACTION Provider, Abstract [...]
--- OUTSIDE RECORDS SUMMARY | 2025-09-03 00:56 | XMS_ITS | Encounter Summary ---
Author Organization [facility] Address [address] [place] [address] Phone Care Team Providers Care Fruit And Vegetable Inspector Name Role Phone Sudhakar Howard MD Primary Care Provider [phone] Terrence Benoit MD Primary Care Provider [phone] Encounter Details Date Type Department Care Team (Late st Contact Info) Description 12/23/2017 Orders Only [facility] ProviderChaz MD [address] [place] [id number] Social History Tobacco Use Types Packs/Day Years Used Date Smoking Tobacco: Never Alcohol Use Standard Drinks/Week Comments Yes 0 (1 standard drink = 0.6 oz pur e alcohol) Sex and Gender Information Value Date Recorded Sex Assigned at Not on file Legal Sex Male 9:58 AM CATEGORY PLANNER Gender Identity Not on file Sexual Orientation [...] COVID: Suspected 08/15/2020 08/15/2020 08/16/2020 4:33 PM CATEGORY PLANNER COVID19 08/15/2020 08/15/2020 08/29/2020 3:07 AM CATEGORY PLANNER COVID: Recovered Comment:Added based on recent COVID infection. 08/29/2020 08/31/2020 12/27/2020 3:05 AM C DT documented as of this encounter Care Teams Fruit And Vegetable Inspector Relationship Specialty Start Date End Date Sudhakar Howard MD PCP - General 01/06/17 05/02/22 Terrence Benoit MD PCP - General Family Medicine 05/03/22 documented as of this encounter
[2025-09-03] MEDS: LACTATED RINGERS 1,000 ML 150 ML IV CONT (11:02)
[2025-09-03] MEDS: ONDANSETRON INJ 4 MG/2 ML VIAL IV PUSH (11:02)
[2025-09-03] MEDS: INSULIN HUMAN REGULAR (*BKC) 100 UNITS/ML SUB-Q (11:04)
--- NOTE | 2025-09-03 11:51 | WPDANESEPPF ---
Anes - Initial Pre Proc Eval Procedure: Operation Date: 09/03/25 12:30 Proposed Procedures p Esophagogastroduodenoscopy EGD - Adam Thomson MD Date/Time: 09/03/25 11:51 Surgeon: Adam Thomson MD Pre Op Diagnosis: Epigastric pain, Nausea Patient Data Age: 59 Gender: M Height: 1.78 m Weight: 102 kg Allergies Allergy/AdvReac Type Severity Reaction Status Date / Time No Known Allergies Allergy Verified 09/03/25 10:52 Home Medications ?Medication ?Instructions ?Recorded ?Confirmed ?Type syringe with needle, safety 3 mL #15 ea 02/26/24 08/25/25 Rx 22 gauge x 1 (Easy Touch FlipLock Syringe) syringe with needle 3 mL 23 x 1 #50 ea 02/29/24 08/25/25 Rx tadalafil 10 mg tablet (Cialis) 10 mg PO DAILY PRN sexual activity 07/10/24 09/01/25 Rx #20 tabs sertraline 100 mg tablet See Rx Instructions .Route 05/13/25 09/03/25 Rx .COMPLEX #90 tabs certrazine 100 mg .Route DAILY 06/20/25 09/03/25 History insulin degludec 200 unit/mL (3 40 unit subcut DAILY 06/20/25 09/03/25 History mL) subcutaneous pen (Tresiba FlexTouch U-200 insulin) losartan 125 mg PO DAILY 06/20/25 09/03/25 History Dexcom G7 Sensor (blood-glucose #2 ea 07/17/25 08/25/25 Rx sensor) atorvastatin 20 mg tablet (Lipitor) 20 mg PO DAILY #90 tabs 07/17/25 09/03/25 Rx pen needle, diabetic 31 gauge x #100 ea 07/17/25 08/25/25 Rx 5/16 (Unifine Pentips Plus) empagliflozin 10 mg tablet 10 mg PO QAM #90 tabs 07/18/25 09/03/25 Rx (Jardiance) metformin 500 mg tablet See Rx Instructions .Route 08/25/25 09/03/25 Rx .COMPLEX #360 tabs omeprazole 40 mg capsule,delayed 40 mg PO DAILY 1 month #30 caps 08/25/25 09/03/25 Rx release Patient hx anesthesia problems: none Family hx anesthesia problems: none Results Review: All pre-operative results and documents have been reviewed as part of the pre-operative evaluation. [facility] Past Medical History Medical History Dysphagia Hyperlipidemia Diabetes Hypertension Surgical History Surgical History No pertinent past surgical history Family History Family History Father Diabetes mellitus Hypertension Grandparent Diabetes mellitus Social History Social History Smoking status: Never smoker Alcohol intake: current Alcohol use details: socially Substance use: never Substance use type: does not use Lack of Transportation: No Lack of Food: Never True Current Housing: I Have Housing Concerned About Future Housing: No Difficulty Paying Gas/Electric Bills: No Difficulty Paying for Meds: No Currently Unemployed: No Education: Trade/Vocational Certificate Difficulty w/ Childcare or Family Care: No Living arrangements: with family Spiritual care concerns: No Anes - Eval Final PreProcedure Day of Procedure 09/03/25 11:51 Patient weight: obese Lungs: normal air movement Airway: Mallampati scale class II Neurological: alert and oriented Last oral intake: >/= 8 hours ASA classification: III Emergent: no Anesthetic plan: proceed Anesthesia type and monitoring: general GIVS and standard monitoring Results Review: All pre-operative results and documents have been reviewed as part of the pre-operative evaluation. HTN, hyperlipidemia, DM, good et, pt can walk 1-2 fos, no cp or sob. Informed Consent: The patient's anesthetic plan and its attendant risks and benefits were discussed with the patient/family/POA. Questions were solicited and answers provided to the satisfaction of the patient/family/POA.
--- NOTE | 2025-09-03 11:58 | SUR.PREOP ---
Had patient recheck blood sugar on dexcom. Blood sugar reading is currently 255. No new orders at this time.
--- NOTE | 2025-09-03 11:59 | SUR.PREOP ---
Patient has DexRideApart monitor for blood glucose. Blood glucose was 282 at 1050. Orders received for one time dose of 5 units regular insulin sub-q per Dr. Cantrell.
--- NOTE | 2025-09-03 12:47 | PM.IMHP ---
H&P: HPI History of Present Illness Date/Time: 09/03/25 12:47 Chief Complaint: nausea Narrative: This patient has been complaining of intermittent nausea, occurring at least 3 times a week for the past 18-24 months. On occasions he also experiences dysphagia to solid foods. He denies heartburn, vomiting, hematemesis or unintentional weight loss. He is referred for EGD. Review of Systems Review of Systems: All systems reviewed & are unremarkable except as noted in HPI and below PMFSH Past Medical History Medical History Dysphagia Hyperlipidemia Diabetes Hypertension Surgical History Surgical History No pertinent past surgical history Family History Family History Father Diabetes mellitus Hypertension Grandparent Diabetes mellitus Social History Social History Smoking status: Never smoker Alcohol intake: current Alcohol use details: socially Substance use: never Substance use type: does not use Lack of Transportation: No Lack of Food: Never True Current Housing: I Have Housing Concerned About Future Housing: No Difficulty Paying Gas/Electric Bills: No Difficulty Paying for Meds: No Currently Unemployed: No Education: Trade/Vocational Certificate Difficulty w/ Childcare or Family Care: No Living arrangements: with family Spiritual care concerns: No Meds Home Medications and Allergies Home Medications ?Medication ?Instructions ?Recorded ?Confirmed ?Type syringe with needle, safety 3 mL #15 ea 02/26/24 08/25/25 Rx 22 gauge x 1 (Easy Touch FlipLock Syringe) syringe with needle 3 mL 23 x 1 #50 ea 02/29/24 08/25/25 Rx tadalafil 10 mg tablet (Cialis) 10 mg PO DAILY PRN sexual activity 07/10/24 09/01/25 Rx #20 tabs sertraline 100 mg tablet See Rx Instructions .Route 05/13/25 09/03/25 Rx .COMPLEX #90 tabs certrazine 100 mg .Route DAILY 06/20/25 09/03/25 History insulin degludec 200 unit/mL (3 40 unit subcut DAILY 06/20/25 09/03/25 History mL) subcutaneous pen (Tresiba FlexTouch U-200 insulin) losartan 125 mg PO DAILY 06/20/25 09/03/25 History Dexcom G7 Sensor (blood-glucose #2 ea 07/17/25 08/25/25 Rx sensor) atorvastatin 20 mg tablet (Lipitor) 20 mg PO DAILY #90 tabs 07/17/25 09/03/25 Rx pen needle, diabetic 31 gauge x #100 ea 07/17/25 08/25/25 Rx 5/16 (Unifine Pentips Plus) empagliflozin 10 mg tablet 10 mg PO QAM #90 tabs 07/18/25 09/03/25 Rx (Jardiance) metformin 500 mg tablet See Rx Instructions .Route 08/25/25 09/03/25 Rx .COMPLEX #360 tabs omeprazole 40 mg capsule,delayed 40 mg PO DAILY 1 month #30 caps 08/25/25 09/03/25 Rx release Allergies Allergy/AdvReac Type Severity Reaction Status Date / Time No Known Allergies Allergy Verified 09/03/25 10:52 Exam Const: General: cooperative and healthy appearing Resp: Effort & Inspection: normal respiratory effort and able to speak in complete sentences Auscultation: clear to auscultation bilaterally Cardio: Rate: regular rate Rhythm: regular rhythm GI: Inspection: normal to inspection GI Palp: No No hepatosplenomegaly present Auscultation: normal bowel sounds Rectal Exam: deferred Skin: General skin exam: normal color Psych: Appearance: grossly normal Mental Status: mental status grossly normal Assessment and Plan Assessment and plan (1) Nausea: Code(s): R11.0 - Nausea Status: Acute Assessment and Plan: The patient is deemed a good candidate for the procedure. Consent signed. Will proceed.
--- NOTE | 2025-09-03 13:00 | S_PTH ---
PATIENT: Itz Garcia LOC: JACOB #:[id number] AGE/SX: 59/M ROOM: RE09/03/[address]: Adam Thomson MD : 1965 BED: DIS: 09/03/2025 SPEC #: [id number] RECD: 09/03/25 13:08 STATUS: KESHA RERenee #: [id number] SHARON: 09/03/25 13:[address]: Adam Thomson DEPT: [facility] Surgical RECD BY: Ridge Logan ENTERED: 09/03/25 13:09 SP TYPE: Surgical OTHR DR: Cameron Rodriguez MD Tissues: A - Gastric Biopsy B - Gastric Biopsy Procedures: Hematoxylin and Eosin Stain Gross and Microscopic Level 4
[2025-09-03 13:04] VITALS: BP 138/87; PULSE 71; RESP 23; O2SAT 97
[2025-09-03 13:14] VITALS: BP 131/89; PULSE 72; RESP 15; O2SAT 97
[2025-09-03 13:24] VITALS: BP 152/89; PULSE 65; RESP 13; O2SAT 98
== END 2025-09-03 13:30 | disposition home or self-care (01) ==
PROVIDERS: PCP Family Medicine; Referring Provider Nurse Practitioner Family; Visit Provider Internal Medicine Gastroenterology
PROC: 0DJ08ZZ Inspection of Upper Intestinal Tract, Via Natural or Artificial Opening Endoscopic (ICD-10-PCS; CPT 43239; principal; 2025-09-03 12:30)
DX: I85.00 Esophageal varices without bleeding (principal); K29.70 Gastritis, unspecified, without bleeding; K21.9 Gastro-esophageal reflux disease without esophagitis; E78.5 Hyperlipidemia, unspecified; E11.9 Type 2 diabetes mellitus without complications; I10 Essential (primary) hypertension; E66.9 Obesity, unspecified; Z68.32 Body mass index [BMI] 32.0-32.9, adult; Z79.4 Long term (current) use of insulin; Z79.84 Long term (current) use of oral hypoglycemic drugs
CPT/HCPCS: 43239; 88305; J1815; J2405; J7120